=== PATIENT | male | born 1960 | race Caucasian/White ===

== ENCOUNTER → 2018-01-24 | Outpatient (CLI) | payer OTHER ==
--- NOTE | 2018-01-24 12:47 | EST ---
EXERCISE STRESS DATE OF SERVICE: 01/24/2018 AGE: 57 SEX: Male HT: 5'8" WT: 205 PROTOCOL: Pranay STAGE: III DURATION OF EXERCISE: 9 minutes HEART RATE REST: 61 BLOOD PRESSURE REST: 147/98 MAXIMUM HEART RATE ACHIEVED: 149 MAXIMUM BLOOD PRESSURE: 210/80 85% MPHR: 138 100% MPHR: 162 METS: 10.3 INDICATIONS: Chest pain. CLINICAL INFORMATION: Baseline EKG revealed normal sinus rhythm without significant ST-T changes. Patient walked on a standard Pranay protocol for 9 minutes, achieved a maximal heart rate of 149 beats per minute developed fatigue, shortness of breath, but did not have any angina or arrhythmia. EKG did not reveal any ST-segment changes to indicate ischemia. This is a negative stress test with fair exercise capacity. FINAL IMPRESSION: Fair exercise capacity with a negative stress test by EKG criteria. Patient did not have any angina or arrhythmia. MMODL / IJN: [id number] /
== END | disposition home or self-care (01) ==
LOC: RADNMMAIN 11:04
PROVIDERS: ATTEND Internal Medicine
DX: I25.10 Atherosclerotic heart disease of native coronary artery without angina pectoris (principal); Z88.8 Allergy status to other drugs, medicaments and biological substances
CPT/HCPCS: 93017

== ENCOUNTER → 2018-11-25 | Outpatient (CLI) | payer OTHER | END | disposition home or self-care (01) | LOC: LABWHC1 14:19 | PROVIDERS: ATTEND Otolaryngology | DX: J30.89 Other allergic rhinitis (principal) | CPT/HCPCS: 36415 ==

== ENCOUNTER 2018-11-28 06:09 | Day surgery (SDC) | payer OTHER ==
[2018-11-27 10:09] VITALS: BMI 29.6
[~2018-11-28 06:09] MED LIST: DEXAMETHASONE SOD PHOSPHATE 10 MG/ML 1 ML VIAL IV ONE; DEXAMETHASONE SOD PHOSPHATE 4 MG/ML 1 ML VIAL IV ONE; FAMOTIDINE 20 MG/2 ML VIAL IV ONE; LACTATED RINGERS 1,000 ML IV SCH; MIDAZOLAM 2 MG/2 ML VIAL IV PRN; ONDANSETRON 4 MG/2 ML VIAL IVP ONE; SCOPOLAMINE 1.5MG/72HR PATCH TRANSDERM ONE; ceFAZolin 1,000 MG in DEXTROSE/WATER 1 50ML.BAG IV ONE
[2018-11-28] MEDS: OXYMETAZOLINE 0.05% NASL SPRAY 1 SPRAY BOTTLE NASAL ONE ×5 (06:29→06:49)
[2018-11-28 06:40] LABS: Glucose,Whole Blood 93 mg/dL (75-99)
[2018-11-28] MEDS ORDERED: DEXAMETHASONE SOD PHOS (MDV) 100 MG/10 ML VIAL ONE (07:26)
[2018-11-28] MEDS ORDERED: PROPOFOL 10 MG/ML 20 ML VIAL IV ONE (07:26)
[2018-11-28] MEDS ORDERED: LIDOCAINE 1% INJ 10MG/ML (20 ML MDV) ONE (07:26)
[2018-11-28] MEDS ORDERED: SUCCINYLCHOLINE CHLORIDE 100 MG/5 ML SYR IV ONE (07:26)
[2018-11-28] MEDS ORDERED: MIDAZOLAM 2 MG/2 ML VIAL ONE (07:26)
[2018-11-28] MEDS ORDERED: fentaNYL (PF) 50 MCG/ML 2 ML AMP ONE (07:26)
[2018-11-28] MEDS ORDERED: LIDOCAINE 1%-EPI 1:100,000 20 ML VIAL SQ ONE ×2 (07:46)
[2018-11-28] MEDS ORDERED: BUPIVACAIN-EPI 0.5%-1:200,000 30 ML VIAL SQ ONE ×2 (07:47)
[2018-11-28] MEDS ORDERED: BACITRACIN 500 UNIT/GM OINT 28.4 GM TUBE TOPICAL ONE (08:01)
[2018-11-28 08:25] VITALS: TEMP 97.2
[2018-11-28] MEDS: HYDROmorphone 0.5 MG/0.5 ML SYRINGE IVP PRN ×4 (08:32→08:57)
--- NOTE | 2018-11-28 08:34 | P.OP ---
Date of Procedure: 11/28/18 Preoperative Diagnosis: Closed nasal bone fracture with instability Deviated nasal septum to the left with instability secondary to fracture Postoperative Diagnosis: Same Procedure(s) Performed: Closed reduction of a nasal bone fracture with fixation and stabilization Septoplasty Anesthesia: ROMY Surgeon: Royer Stanford Estimated Blood Loss (ml): 5 Pathology: other (Septal) Condition: stable Disposition: PACU Indications for Procedure: This patient presented to the office where on November 20 he was at his laptop computer and lost consciousness and struck his face sustaining an immediate epistaxis and an obvious external nasal deformity. He has a hard time breathing from the left side of his nose and has an obvious external nasal deformity. Was taken to the emergency room [facility] and treated and then referred my office. Operative Findings: Patient had a fractured nose with displacement to the right along with a deviated septum to the left with a fresh multiple fracture lines noted. Description of Procedure: This patient was taken to the operative room and placed in the supine position. A general inhalation anesthetic was administered by the department of anesthesia with a functioning IV line in place. The patient was monitored throughout the entire case by the department of anesthesia. The external nose and septum and lateral nasal wall were injected with lidocaine 1% with epinephrine 1 100,000. Approximately 10 minutes were allowed wait for full vasoconstrictive effects to take place. A caudal incision was made over the caudal portion of the left septum down to the mucoperichondrium. A mucoperichondrial flap was developed to the extent of visualization on the left and a crossover incision was made with for the mucoperichondrial flap development to the extent of visualization on the contralateral side. We removed redundant cartilage and was crosshatching incisions the septum was straightened and placed back in the midline. After the septum was straightened we closed the incisions with 40 rapid Vicryl in a quilting stitch was used to reapproximate the septal flaps. We then stabilized the septum with sutures along the ovarian groove. Excellent stabilization was obtained. Intranasal splints were applied and fixated Our attention then was focused on straightening of the nose. With use of a DuraFizzes nasal elevator intranasally we reduce the nasal bone fracture and placed it back into its proper anatomic position. Once the nose was straightened in its normal anatomic position, stabilization was accomplished with taped and casted. Excellent results were obtained and the patient tolerated this well. We utilized a thermal splint to the nose along with tape and Mastisol. Patient tolerated this well and follow-up will be in the office in 1 week. The patient is to contact me if any problems should arise.
[2018-11-28 09:14] VITALS: RESP 16
[2018-11-28] MEDS ORDERED: MELOXICAM 7.5 MG TAB PO SCH (10:00)
[2018-11-28 10:19] VITALS: BP 138/78; PULSE 58
== END 2018-11-28 10:39 | disposition home or self-care (01) ==
LOC: OR 06:09
PROVIDERS: ATTEND Otolaryngology
DX: S02.2XXA Fracture of nasal bones, initial encounter for closed fracture (principal); J34.2 Deviated nasal septum; W22.8XXA Striking against or struck by other objects, initial encounter; I10 Essential (primary) hypertension; E78.5 Hyperlipidemia, unspecified; Y92.009 Unspecified place in unspecified non-institutional (private) residence as the place of occurrence of the external cause; R00.1 Bradycardia, unspecified; Z79.52 Long term (current) use of systemic steroids; Z79.899 Other long term (current) drug therapy
CPT/HCPCS: 88300; 21320; 30520; J2250; J1100 ×2; J2405; J2001; J3010; J0690; J0330; J2704; J1170